=== PATIENT | female | born 1995 | race Caucasian/White ===

== ENCOUNTER 2017-08-15 13:11 | Emergency (ER) | payer SELFPAY ==
[~2017-08-15] VITALS: Ht 170.2 cm; Wt 61.2 kg
[2017-08-15] MEDS ORDERED: METOCLOPRAMIDE HCL 10 MG/2 ML VIAL IM ONE (14:00)
[2017-08-15] MEDS ORDERED: diphenhydrAMINE 50 MG/1 ML VIAL IM ONE (14:00)
[2017-08-15] MEDS ORDERED: diphenhydrAMINE 50 MG/1 ML VIAL ONE (14:30)
[2017-08-15] MEDS ORDERED: METOCLOPRAMIDE HCL 10 MG/2 ML VIAL ONE (14:31)
[2017-08-15 14:53] LABS: *URINE HCG, QUAL NEGATIVE (NEGATIVE)
--- NOTE | 2017-08-15 15:34 | NUR ---
Patient discharged to home in stable conditon. Written and verbal after care instructions given. Patient verbalizes understanding of instructions.PT WALKS IN STEADY GAIT. PT NOT DRIVING. PT ACCOMPANIED BY FRIEND.PT RON CASTRO NAUSEA, DIZINESS AT THIS TIME.
[2017-08-15 15:36] VITALS: BP 121/71
== END 2017-08-15 15:20 | disposition home or self-care (01) ==
LOC: ER 13:11
DX: S06.0X0A Concussion without loss of consciousness, initial encounter (principal); Z90.89 Acquired absence of other organs; V47.5XXA Car driver injured in collision with fixed or stationary object in traffic accident, initial encounter; Y93.89 Activity, other specified; Y99.8 Other external cause status; Y92.410 Unspecified street and highway as the place of occurrence of the external cause
CPT/HCPCS: 70450; 84703; A4663; J1200; J2765